=== PATIENT | female | born 1985 ===

== ENCOUNTER 2022-01-23 15:29 | Outpatient (CLI) | payer OTHER | END 2022-01-23 16:30 | disposition home or self-care (01) | LOC: PRENATAL 15:29 | PROVIDERS: ATTEND Obstetrics & Gynecology Maternal & Fetal Medicine | DX: O36.80X0 Pregnancy with inconclusive fetal viability, not applicable or unspecified (principal); O09.529 Supervision of elderly multigravida, unspecified trimester; Z3A.11 11 weeks gestation of pregnancy ==

== ENCOUNTER 2022-03-27 13:05 | Outpatient (CLI) | payer OTHER | END 2022-03-27 15:00 | disposition home or self-care (01) | LOC: PRENATAL 13:05 | PROVIDERS: ATTEND Obstetrics & Gynecology Maternal & Fetal Medicine | DX: O35.1XX1 Maternal care for (suspected) chromosomal abnormality in fetus, fetus 1 (principal); O35.3XX0 Maternal care for (suspected) damage to fetus from viral disease in mother, not applicable or unspecified; O09.529 Supervision of elderly multigravida, unspecified trimester; O09.219 Supervision of pregnancy with history of pre-term labor, unspecified trimester; O34.30 Maternal care for cervical incompetence, unspecified trimester; Z3A.20 20 weeks gestation of pregnancy ==

== ENCOUNTER 2022-03-27 16:00 | Inpatient (IN) | payer OTHER ==
[~2022-03-27] VITALS: Ht 154.9 cm; Wt 82.6 kg
== END 2022-04-11 13:34 | disposition home or self-care (01) | DRG 819 ==
LOC: OB/GYN 16:00 → LDR 16:00 → OB/GYN 03-28 09:53
PROVIDERS: ADMIT Obstetrics & Gynecology; ATTEND Obstetrics & Gynecology
PROC: 4A1HXCZ Monitoring of Products of Conception, Cardiac Rate, External Approach (ICD-10-PCS; 2022-03-27)
PROC: 0UVC7ZZ Restriction of Cervix, Via Natural or Artificial Opening (ICD-10-PCS; principal; 2022-03-27 19:30)
PROC: BU4CZZZ Ultrasonography of Uterus and Ovaries (ICD-10-PCS; 2022-04-10)
PROC: BY4CZZZ Ultrasonography of Second Trimester, Single Fetus (ICD-10-PCS; 2022-04-10)
DX: O34.32 Maternal care for cervical incompetence, second trimester (principal); Z3A.21 21 weeks gestation of pregnancy; Z20.822 Contact with and (suspected) exposure to COVID-19; O26.842 Uterine size-date discrepancy, second trimester; O26.872 Cervical shortening, second trimester

== ENCOUNTER 2022-05-19 18:39 | Emergency (ER) | payer OTHER ==
[~2022-05-19] VITALS: Ht 154.9 cm; Wt 84.4 kg
[2022-05-19] MEDS ORDERED: PRENATAL CAPLE1 EAC1 (18:56)
== END 2022-05-19 21:27 | disposition home or self-care (01) ==
LOC: ER 18:39
DX: U07.1 COVID-19 (principal); J02.9 Acute pharyngitis, unspecified

== ENCOUNTER 2022-05-22 10:33 | Outpatient (CLI) | payer OTHER ==
[~2022-05-22 10:33] MED LIST: PRENATAL CAPLE1 EAC1
== END 2022-05-22 11:45 | disposition home or self-care (01) ==
LOC: PRENATAL 10:33
PROVIDERS: ATTEND Obstetrics & Gynecology Maternal & Fetal Medicine
DX: O26.849 Uterine size-date discrepancy, unspecified trimester (principal); O09.529 Supervision of elderly multigravida, unspecified trimester; O09.219 Supervision of pregnancy with history of pre-term labor, unspecified trimester; O34.30 Maternal care for cervical incompetence, unspecified trimester; Z3A.28 28 weeks gestation of pregnancy